=== PATIENT | male | born 1995 | race Caucasian/White ===

== ENCOUNTER 2017-04-20 10:01 | Emergency (ER) | payer BC ==
[2017-04-20] MEDS ORDERED: AZITHROMYCIN 250 MG TAB PO ONE (10:29)
[2017-04-20] MEDS ORDERED: DEXAMETHASONE 4 MG TAB PO ONE (10:29)
--- NOTE | 2017-04-20 10:29 | EDPHY ---
General Narrative: CHIEF COMPLAINT: Cough HISTORY OF PRESENT ILLNESS: Patient complains of approximately 10 days duration of cough. It is worse in the morning. Somewhat improved throughout the day. Minimal improvement with ibuprofen 400 mg. No chest pain but he does have some shortness of breath and difficulty catching his breath as [place]. This was gradual onset constant duration. No fever. No headache. No neck pain. No other associated complaints or modifying factors. REVIEW OF SYSTEMS: Ten systems reviewed and are negative unless otherwise noted in the HPI PCP: Back in [place]. None locally SPECIALISTS: None PAST MEDICAL HISTORY: Previous substance abuse on Suboxone PAST SURGICAL HISTORY: None SOCIAL HISTORY: Smoker currently trying to quit. No alcohol. No current illicit substance use FAMILY HISTORY: noncontributory EXAMINATION General Appearance: Alert, no distress Head: normocephalic, atraumatic Eyes: Pupils equal and round, no conjunctival pallor or injection ENT, Mouth: Mucous membranes moist. Uvula midline. Airway is widely patent. Minimal posterior erythema with some postnasal drip. No exudate. No asymmetry. No abnormality of the floor of the mouth Neck: Normal inspection, supple, non-tender. Trachea midline. Respiratory: Moderate rhonchi and some consolidation on the right middle lobe. There are no retractions or distress. No diminishment. Cardiovascular: Regular rate and rhythm. No murmur. Gastrointestinal: Abdomen is soft and nondistended. Back: non-tender, no bony abnormalities Neurological: A&O, nonfocal, normal gait Skin: Warm and dry, no rash. No petechiae or purpura Extremities: Nontender, no pedal edema Psychiatric: Mood and affect normal DIFFERENTIAL DIAGNOSES: Including but not limited to pneumonia, bronchitis, influenza, viral pneumonitis , upper respiratory infection MDM: 10:29 a.m. Cough of 1.5 weeks duration. Examination reveals no acute distress but the auscultation on the right side suggest the possibility of pneumonia. I have ordered a two view chest x-ray for evaluation. I have ordered Decadron and 1st dose of Zithromax as I am electing to treat him the possibility of bacterial involvement. He is in no acute distress. He does not require any supplemental oxygen. He is not meet SIRS criteria. He is a smoker and we discussed smoking cessation for this. 11:00 a.m. Patient re-evaluated. Chest x-ray as read by me reveals no definite pneumonia. The read is pending at this time. 11:45 a.m. Patient re-evaluated. He is in no acute distress. He does not require supplemental oxygen. He has received Decadron and Zithromax. I am going to discharge him home with continuation of Zithromax, and albuterol inhaler and recommendation for [id number] Mucinex and ibuprofen. He can follow up with primary care physician, and I will provide this information for him. ED precautions discussed. He is comfortable with this plan and discharged home stable condition. - History Smoking Status: Current every day smoker - Objective Vital Signs: Initial Vital Signs Temperature (C) 97.9 F 04/20/17 10:05 Heart Rate 70 04/20/17 10:05 Respiratory Rate 18 04/20/17 10:05 Blood Pressure 125/64 H 04/20/17 10:05 O2 Sat (%) 94 04/20/17 10:05 O2 Delivery Mode Room Air Allergies/Adverse Reactions: No Known Allergies Allergy (Unverified 04/20/17 10:03) Home Medications: Medication Instructions Recorded Albuterol [Proventil Inhaler HFA 1 - 2 puffs IH Q4H PRN #1 mdi 04/20/17 (*)] Azithromycin [Zithromax] 250 mg PO DAILY #4 tab 04/20/17 Benzonatate [Tessalon Pearles (RX)] 100 mg PO Q8 PRN #15 cap 04/20/17 CLONAZEPAM 04/20/17 SUBOXONE 2 MG-0.5 MG TABLET 04/20/17 Medications Given: Discontinued Medications Azithromycin (Zithromax) 500 mg PO EDNOW ONE PRN Reason: Protocol Stop: 04/20/17 10:30 Last Admin: 04/20/17 10:34 Dose: 500 mg Dexamethasone (Decadron) 8 mg PO EDNOW ONE Stop: 04/20/17 10:30 Last Admin: 04/20/17 10:34 Dose: 8 mg Departure - Departure Disposition: Home, Routine, Self-Care Clinical Impression: Tobacco dependence Acute bronchitis Qualifiers: Bronchitis organism: unspecified organism Qualified Code(s): J20.9 - Acute bronchitis, unspecified Condition: Good Instructions: Acute Bronchitis (ED), Community Acquired Pneumonia (ED) Additional Instructions: 1. Medication as prescribed to completion 2. Ibuprofen 600 mg-800 mg every 8 hours as needed 2. Mucinex twice daily 3. Smoking cessation recommended 4. Increase fluid intake 5. Follow up with the on-call primary care physician 6. ED precautions as discussed Referrals: UNKNOWN,UNKNOWN [Other] - As per Instructions Nelson Green MD [Medical Doctor] - As per Instructions Prescriptions: Albuterol [Proventil Inhaler HFA (*)] 1 - 2 puffs IH Q4H PRN #1 mdi PRN Reason: Short Of Breath/Dyspnea Azithromycin [Zithromax] 250 mg PO DAILY #4 tab Benzonatate [Tessalon Pearles (RX)] 100 mg PO Q8 PRN #15 cap PRN Reason: Cough, Mild
[2017-04-20 11:58] VITALS: BP 136/74; PULSE 72; RESP 20; TEMP 98.4; O2SAT 96
== END 2017-04-20 11:58 | disposition home or self-care (01) ==
DX: J20.9 Acute bronchitis, unspecified (principal); F17.200 Nicotine dependence, unspecified, uncomplicated

== ENCOUNTER 2017-04-26 09:41 | Emergency (ER) | payer BC ==
[2017-04-26 09:46] VITALS: BP 116/66; PULSE 62; RESP 16; TEMP 97.9; O2SAT 94
--- NOTE | 2017-04-26 09:59 | EDPHY ---
H & P Time Seen by Provider: 04/26/17 09:47 HPI/ROS: CHIEF COMPLAINT: Recheck URI symptoms HISTORY OF PRESENT ILLNESS: 21-year-old male seen emergency department on 04/20 for complaints of 10 days of cough. He was prescribed antibiotics at that time which he completed. He is in the ER for recheck. States that he is feeling progressive improvement although he does noted continued mild nonproductive cough. No chest pain. No dyspnea. No headache. No nuchal rigidity. No fever or chills. No nausea or vomiting. PRIMARY CARE PROVIDER: REVIEW OF SYSTEMS: A ten point review of systems was performed and is negative with the exception of the items mentioned in the HPI PAST MEDICAL & SURGICAL HISTORY: No pertinent medical or surgical history SOCIAL HISTORY:daily tobacco use PHYSICAL EXAM (Prior to examination, patient consented to physical exam, hands were washed and my usual and customary physical exam procedures followed) 1) GENERAL: Well-developed, well-nourished, alert and oriented. Appears to be in no acute distress. 2) HEAD: Normocephalic, atraumatic 3) HEENT: Pupils equal, round, reactive to light bilaterally. Sclera anicteric. Nasopharynx, oropharynx, clear, no lesions. Ears bilaterally with normal tympanic membranes. 4) NECK: Full range of motion, no meningeal signs. No adenopathy 5) LUNGS: Clear auscultation bilaterally, no wheezes, no rhonchi, no retractions. 6) HEART: Regular rate and rhythm, no murmur, no heave, no gallop. 7) ABDOMEN: No guarding, no rebound, no focal tenderness, negative McBurney's, 8) MUSCULOSKELETAL: Moving all extremities,n. 9) BACK: no visual or palpable abnormality. 10) SKIN: No rash, no petechiae. 11) Psychiatric: Patient is oriented X 3, there is no agitation. DIFFERENTIAL DIAGNOSIS: in no particular order including but not limited to pneumonia, bronchitis, sepsis s Smoking Status: Current every day smoker Constitutional: Initial Vital Signs Temperature (C) 36.6 C 04/26/17 09:44 Heart Rate 62 04/26/17 09:44 Respiratory Rate 16 04/26/17 09:44 Blood Pressure 116/66 04/26/17 09:44 O2 Sat (%) 94 04/26/17 09:44 O2 Delivery Mode Room Air Allergies/Adverse Reactions: No Known Allergies Allergy (Verified 04/26/17 09:43) Home Medications: Medication Instructions Recorded Albuterol [Proventil Inhaler HFA 1 - 2 puffs IH Q4H PRN #1 mdi 04/20/17 (*)] Azithromycin [Zithromax] 250 mg PO DAILY #4 tab 04/20/17 Benzonatate [Tessalon Pearles (RX)] 100 mg PO Q8 PRN #15 cap 04/20/17 CLONAZEPAM 04/20/17 SUBOXONE 2 MG-0.5 MG TABLET 04/20/17 MDM/Departure - [facility] ED Course/Re-evaluation: This patient is not hypoxemic, is breathing comfortably, states that he is feeling progressive improvement, in the ER for recheck. I do not think further antibiotics are indicated. I do not think that repeat chest x-rays indicated. Plan will be discharge, given usual customary URI precautions instructions. He feels comfortable with this plan. Care of patient under supervision of secondary supervising physician Dr Brambila . - Depart Disposition: Home, Routine, Self-Care Clinical Impression: Upper respiratory infection Qualifiers: URI type: unspecified URI Qualified Code(s): J06.9 - Acute upper respiratory infection, unspecified Condition: Good Instructions: Upper Respiratory Infection (ED) Additional Instructions: Return to the emergency department immediately for change in breathing habits, change in voice, change in swallowing habits, change in mental status, or any other symptoms that concern you. Referrals: Nelson Green MD [Medical Doctor] - 5-7 days, call for appt.
== END 2017-04-26 10:07 | disposition home or self-care (01) ==
DX: J06.9 Acute upper respiratory infection, unspecified (principal); F17.200 Nicotine dependence, unspecified, uncomplicated